=== PATIENT | female | born 1955 ===

== ENCOUNTER 2022-11-25 17:47 | Emergency (ER) | payer SELFPAY | END 2022-11-25 17:59 | disposition left against medical advice (07) | PROVIDERS: Emergency Provider Emergency Medicine; PCP Internal Medicine | DX: S89.91XA Unspecified injury of right lower leg, initial encounter (principal); X58.XXXA Exposure to other specified factors, initial encounter; Y93.9 Activity, unspecified; Y92.9 Unspecified place or not applicable; Y99.9 Unspecified external cause status ==